=== PATIENT | male | born 1950 | race Caucasian/White ===

== ENCOUNTER 2019-01-24 16:35 | Emergency (ER) | payer MEDICARE, OTHER ==
[~2019-01-24] VITALS: Ht 182.9 cm; Wt 118.2 kg
[2019-01-24] MEDS ORDERED: ketorolac trometh inj. 60 MG/2 ML VIAL IM ONE (18:10)
[2019-01-24 18:36] VITALS: BP 143/77
--- NOTE | 2019-01-25 14:12 | NUR ---
LEFT MESSAGE FOR PATIENT TO CALL REGARDING X-RAY RESULTS.
== END 2019-01-24 18:39 | disposition home or self-care (01) ==
LOC: ER 16:35
DX: M25.512 Pain in left shoulder (principal); V87.7XXA Person injured in collision between other specified motor vehicles (traffic), initial encounter; Y93.89 Activity, other specified; Y92.488 Other paved roadways as the place of occurrence of the external cause; Y99.8 Other external cause status
CPT/HCPCS: 73030; 96372; 99283; J1885